=== PATIENT | male | born 1950 | race Caucasian/White ===

== ENCOUNTER → 2017-01-06 | Outpatient (CLI) | payer BC ==
--- NOTE | 2017-01-06 18:31 | US ---
EXAMINATION TYPE: US prostate transrectal DATE OF EXAM: 01/06/2017 COMPARISON: NONE CLINICAL HISTORY: N41.0 acute prostatitis. This examination was performed using the transrectal probe. Moderate enlargement of the prostate gland is noted. Central glandular calcifications seen. Mild hete rogeneity of the peripheral zone without distinct nodule or mass. Seminal vesicles appear symmetric. EXAM MEASUREMENTS: Gland Size: 6.0 x 4.2 x 5.3cm Volume: 69.3 Predicted PSA: 8.3 Actual PSA (if available):2.1 IMPRESSION: 1. Prostate glandular enlargement 2. No suspicious nodule is identified. Predicted PSA = volume x 0.12 ng/ml Calculated Volume = 0.5236 x L x W x H
== END | disposition home or self-care (01) ==
LOC: RADUSMAIN 07:25
PROVIDERS: ATTEND Internal Medicine
DX: N40.0 Benign prostatic hyperplasia without lower urinary tract symptoms (principal)
CPT/HCPCS: 76872

== ENCOUNTER → 2017-04-22 | Outpatient (CLI) | payer BC ==
--- NOTE | 2017-04-23 07:47 | US ---
EXAMINATION TYPE: US kidneys/renal and bladder DATE OF EXAM: 04/22/2017 COMPARISON: 05/24/2015 CLINICAL HISTORY: R10.9 Unspecified Abdominal Pain. EXAM MEASUREMENTS: Right Kidney: 11.4 x 5.0 x 4.8 cm Left Kidney: 11.6 x 5.0 x 5.0 cm Right Kidney: No hydronephrosis or masses seen Left Kidney: No hydronephrosis. Cystic area visualized measuring 0.9 x 0.7 x 0.7 cm Bladder: wnl Bilateral Jets seen: Yes Cortical medullary differentiation is maintained. Subcentimeter cortical cyst is present. Inferior im pression on the urinary bladder by enlarged prostate is again noted. Liver echotexture is coarse which may be indicative of underlying hepatocellular disease. IMPRESSION: Prostate enlargement. Additional findings above.
== END | disposition home or self-care (01) ==
LOC: RADUSWWP 15:28
PROVIDERS: ATTEND Internal Medicine
DX: N40.0 Benign prostatic hyperplasia without lower urinary tract symptoms (principal); R10.9 Unspecified abdominal pain
CPT/HCPCS: 76770

== ENCOUNTER → 2021-12-09 | Outpatient (CLI) | payer MEDICARE, OTHER | END | disposition home or self-care (01) | LOC: PROCWHC3 12:36 | PROVIDERS: ATTEND Nurse Practitioner Adult Health | DX: Z53.9 Procedure and treatment not carried out, unspecified reason (principal) ==

== ENCOUNTER → 2021-12-11 | Outpatient (CLI) | payer MEDICARE, OTHER ==
[~2021-12-11] MED LIST: BEBTELOVIMAB (EUA) 175 MG/2 ML VIAL IV ONE; SODIUM CHLORIDE 0.9% 500 ML 500 ML in EMPTY BAG 1 BAG IV PRN
[2021-12-11 13:07] VITALS: TEMP 97.4
[2021-12-11 13:59] VITALS: BP 113/72; PULSE 56; RESP 16
== END | disposition home or self-care (01) ==
LOC: PROCWHC3 12:28
PROVIDERS: ATTEND Nurse Practitioner Adult Health
DX: U07.1 COVID-19 (principal)

== ENCOUNTER → 2022-09-11 | Outpatient (CLI) | payer MEDICARE, OTHER ==
[2022-09-11 21:43] LABS: Basophils # (A) 0.05 X 10*3/uL (0.00-0.10); Basophils % (A) 0.9 %; Eosinophils % (A) 3.6 %; HCT 44.6 % (39.6-50.0); HGB 14.9 d/dL (12.0-15.0); Lymphocytes # (A) 1.78 X 10*3/uL (0.90-5.00); MCHC 33.4 d/dL (32.0-37.0); MCV 92.7 FL (80.0-97.0); Mean Platelet Volume 12.4 FL (9.5-12.2); Monocytes % (A) 7.2 %; NRBC Per 100 WBC 0 X 10*3/uL (0.00-0.01); Neutrophils # (A) 3.12 X 10*3/uL (1.80-7.70); Neutrophils % (A) 55.9 %; Platelet Count 113 X 10*3/uL (140-440); RBC 4.81 X 10*6/uL (4.40-5.60); RDW 11.7 % (11.5-14.5); WBC 5.57 X 10*3/uL (4.50-10.00)
[2022-09-12 02:38] LABS: BUN/Creat Ratio 18.78 Ratio (12.00-20.00); Blood Urea Nitrogen 16.9 mg/dL (9.0-27.0); Calcium 10.2 mg/dL (8.7-10.3); Carbon Dioxide 29.8 mmol/L (21.6-31.8); Chloride 105 mmol/L (96-109); Glucose 101 mg/dL (70-110); Potassium 5.6 mmol/L (3.5-5.5); Sodium 144 mmol/L (135-145)
== END | disposition home or self-care (01) ==
LOC: LABPAT 14:16
PROVIDERS: ATTEND Urology
DX: Z01.818 Encounter for other preprocedural examination (principal); N40.1 Benign prostatic hyperplasia with lower urinary tract symptoms
CPT/HCPCS: 80048; 85025

== ENCOUNTER 2022-09-17 05:42 | Day surgery (SDC) | payer MEDICARE, OTHER ==
[2022-09-14 15:05] VITALS: BMI 23.6
--- NOTE | 2022-09-16 18:56 | P.GSHP ---
History of Present Illness H&P Date: 09/16/22 Chief Complaint: Weak urinary stream Patient is a 71-year-old white male with a several year history of obstructive voiding symptoms. He was treated for a Proteus UTI in December 2016. He empties his bladder adequately. He has taken tamsulosin without benefit. Cystoscopy shows a very large intravesical median lobe in addition to bilobar prostatic enlargement. Ultrasound of treatment options were reviewed. He has elected to undergo a bipolar transurethral resection of prostate (TURP). - Cardiovascular Cardiovascular: Reports high blood pressure - Genitourinary (Male) Genitourinary: Reports nocturia Past Medical History Past Medical History: Coronary Artery Disease (CAD), Diabetes Mellitus, Hyperlipidemia, Prostate Disorder Additional Past Medical History / Comment(s): enlarged prostate History of Any Multi-Drug Resistant Organisms: None Reported Past Surgical History: Orthopedic Surgery Additional Past Surgical History / Comment(s): left rot cuff repair, ORIF left great toe,rnai eyes cataracts Past Anesthesia/Blood Transfusion Reactions: No Reported Reaction Additional Past Anesthesia/Blood Transfusion Reaction / Comment(s): no hx blood tranfusion Smoking Status: Former smoker - Past Family History Mother Family Medical History: Cancer Sister(s) Family Medical History: Cancer Medications and Allergies Home Medications Medication Instructions Recorded Confirmed Type Atorvastatin [Lipitor] 10 mg PO DAILY 09/14/22 09/14/22 History Dulaglutide [Trulicity] 4.5 mg SQ MO 09/14/22 09/14/22 History Insulin Glargine [Lantus Vial] 30 unit SQ QAM 09/14/22 09/14/22 History Levothyroxine Sodium [Levoxyl] 50 mcg PO QAM 09/14/22 09/14/22 History Multivit-Min/FA/Lycopen/Lutein 1 each PO DAILY 09/14/22 09/14/22 History [Centrum Silver Tablet] atenoloL [Tenormin] 25 mg PO QAM 09/14/22 09/14/22 History Allergies Allergy/AdvReac Type Severity Reaction Status Date / Time empagliflozin Allergy Rash/Hives Verified 09/14/22 14:53 [From Jardiance] sitagliptin [From Januvia] Allergy Rash/Hives Verified 09/14/22 14:53 Surgical - Exam - General well developed, well nourished, no distress - Respiratory normal respiratory effort - Abdomen Abdomen: soft, non tender, no guarding, no rigid, no rebound - Genitourinary normal penis with no external lesions, testicles non-tender - Rectum Rectum: normal sphincter tone, no masses, other (Prostate moderately enlarged but smooth) - Psychiatric oriented to time, oriented to person, oriented to place, speech is normal, memory intact Assessment and Plan (1) Benign prostatic hyperplasia with lower urinary tract symptoms Status: Acute Code(s): N40.1 - BENIGN PROSTATIC HYPERPLASIA WITH LOWER URINARY TRACT SYMP SNOMED Code(s): 710459943 Plan: Cystoscopy, TURP. The procedure has been reviewed in detail with the patient. The anticipated perioperative course has been discussed. He has been made aware of potential risks, which include anesthesia, bleeding, infection, vesical neck contracture, persistent voiding symptoms, erectile dysfunction, retrograde ejaculation, and urinary incontinence.
[2022-09-17] MEDS ORDERED: DEXAMETHASONE SOD PHOSPHATE 4 MG/ML 1 ML VIAL IV ONE (06:00)
[2022-09-17] MEDS ORDERED: ONDANSETRON 4 MG/2 ML VIAL IVP ONE (06:00)
[2022-09-17] MEDS ORDERED: HYDROmorphone 0.5 MG/0.5 ML SYRINGE IVP PRN (06:00)
[2022-09-17 06:38] LABS: Glucose,Whole Blood 137 mg/dL (70-110)
[2022-09-17] MEDS: LACTATED RINGERS 1,000 ML IV SCH (06:42)
[2022-09-17] MEDS ORDERED: ROCURONIUM 10 MG/ML (5 ML VIAL) IV ONE (07:26)
[2022-09-17] MEDS ORDERED: LIDOCAINE 2% INJ 20 MG/ML (2 ML VIAL) ONE (07:26)
[2022-09-17] MEDS ORDERED: PROPOFOL 10 MG/ML 20 ML VIAL IV ONE (07:26)
[2022-09-17] MEDS ORDERED: GLYCOPYRROLATE 0.2 MG/ML 2 ML VIAL ONE (07:26)
[2022-09-17] MEDS ORDERED: fentaNYL (PF) 50 MCG/ML 2 ML AMP ONE (07:26)
[2022-09-17] MEDS ORDERED: SUCCINYLCHOLINE CHLORIDE 200 MG/10 ML VIAL IV ONE (07:26)
[2022-09-17] MEDS ORDERED: MIDAZOLAM 2 MG/2 ML VIAL ONE (07:26)
[2022-09-17] MEDS ORDERED: NEOSTIGMINE 1 MG/ML 10 ML VIAL ONE (07:26)
[2022-09-17] MEDS ORDERED: SODIUM CHLORIDE 0.9% 1,000 ML IV ONE (09:45)
[2022-09-17 17:09] LABS: Glucose,Whole Blood 210 mg/dL (70-110)
[2022-09-17] MEDS: SODIUM CHLORIDE 0.9% IRRIG 3,000 ML BAG IRRIGATION SCH ×2 (17:30→20:00)
[2022-09-17] MEDS: DEXTROSE 5%-0.45% NACL 1,000 ML IV SCH ×2 (17:30→17:31)
[2022-09-17] MEDS: DOCUSATE 100 MG CAP PO SCH (20:45)
[2022-09-17] MEDS: ACETAMINOPHEN TAB 325 MG TAB PO PRN (20:45)
[2022-09-17 20:47] LABS: Glucose,Whole Blood 293 mg/dL (70-110)
--- NOTE | 2022-09-17 22:02 | P.OP ---
Date of Procedure: 09/17/22 Preoperative Diagnosis: BPH with obstruction Postoperative Diagnosis: BPH with obstruction, urethral stricture Procedure(s) Performed: Cystoscopy, direct visual internal urethrotomy (DVIU), bipolar transurethral resection of prostate (TURP) Anesthesia: CINTHYA Surgeon: Taye Marshall Estimated Blood Loss (ml): 150 IV fluids (ml): 1,100 Pathology: other (Prostate chips) Condition: stable Disposition: PACU Indications for Procedure: Patient is a 71-year-old white male with a several year history of obstructive voiding symptoms. He was treated for a Proteus UTI in December 2016. He empties his bladder adequately. He has taken tamsulosin without benefit. Cystoscopy shows a very large intravesical median lobe in addition to bilobar prostatic enlargement. Ultrasound of treatment options were reviewed. He has elected to undergo a bipolar transurethral resection of prostate (TURP). Operative Findings: Bulbous urethral stricture. Trilobar BPH. Trabeculated bladder with several diverticuli. Description of Procedure: The patient was taken in the operating room and placed in the dorsolithotomy position. The external genitalia was prepped and draped sterilely. The urethral meatus would not accommodate the 25-[place] A[employer] resectoscope sheath, so the [place] urethrotome was used to perform a urethrotomy. The resectoscope sheath was then advanced under direct vision, but a bulbous urethral stricture was encountered. The visual urethrotome was used to perform a direct visual internal urethrotomy. It was then possible to advance the resectoscope sheath through the urethra and into the bladder under direct vision. The bladder was inspected. Both ureteral orifices were of normal anatomic location and configuration. No tumors or foreign bodies were seen. The bladder was trabecu lated, and at least 2 diverticuli were seen. Examination of the prostate revealed complete obstruction with a trilobar configuration. Using the bipolar cutting loop, the median lobe was resected. Next, each of the lateral lobes were resected down to the surgical capsule. The floor of the prostate was then resected, proximal to the verumontanum. Next, the remaining anterior tissue was resected. The apex extended beyond the verumontanum, and the most apical tissue was preserved to avoid injury to the external urinary sphincter. The resection was carried down to the surgical capsule in all 4 quadrants. The prostatic fossa was then carefully examined, and any areas of bleeding were controlled with electrocautery. Adequate hemostasis was attained. The resectoscope was withdrawn into the bulbous urethra. The external urinary sphincter remained intact. The prostatic fossa was open. The Acquaintable evacuator was used to remove all prostate chips from the bladder. These were saved and sent for pathologic examination. The resectoscope was removed, and a 22 [place], 3-Way Nava catheter was placed. The return was essentially clear. Continuous bladder irrigation was started using 0.9 normal saline. The patient tolerated the procedure well was taken to the recovery room in stable condition.
[2022-09-18] MEDS ORDERED: DEXTROSE 50% SYRINGE 50 ML IVP PRN ×2 (03:45)
--- NOTE | 2022-09-18 04:17 | P.CONS ---
History of Present Illness - Reason for Consult Consult date: 09/17/22 post op DM care - Chief Complaint BPH - History of Present Illness 71 year old male with DM , Hypertension , Hypothyroid patient is here for scheduled TURP secondary to BPH. he tolerated procedure well, no observed immediate post op complications. tolerating PO intake, denies any chest pain or SOB Review of Systems Pertinent positives as noted in HPI. All other systems were reviewed and are negative Past Medical History Past Medical History: Coronary Artery Disease (CAD), Diabetes Mellitus, Hyperlipidemia, Prostate Disorder Additional Past Medical History / Comment(s): enlarged prostate History of Any Multi-Drug Resistant Organisms: None Reported Past Surgical History: Orthopedic Surgery Additional Past Surgical History / Comment(s): left rot cuff repair, ORIF left great toe,rani eyes cataracts, TURP 09/17/2022 Past Anesthesia/Blood Transfusion Reactions: No Reported Reaction Additional Past Anesthesia/Blood Transfusion Reaction / Comm: no hx blood tranfusion Past Psychological History: No Psychological Hx Reported Smoking Status: Former smoker Past Alcohol Use History: Occasional Additional Past Alcohol Use History / Comment(s): quit smoking 50 yrs ago Past Drug Use History: None Reported - Past Family History Mother Family Medical History: Cancer Sister(s) Family Medical History: Cancer Medications and Allergies Home Medications Medication Instructions Recorded Confirmed Type Atorvastatin [Lipitor] 10 mg PO DAILY 09/14/22 09/14/22 History Dulaglutide [Trulicity] 4.5 mg SQ MO 09/14/22 09/14/22 History Insulin Glargine [Lantus Vial] 30 unit SQ QAM 09/14/22 09/14/22 History Levothyroxine Sodium [Levoxyl] 50 mcg PO QAM 09/14/22 09/14/22 History Multivit-Min/FA/Lycopen/Lutein 1 each PO DAILY 09/14/22 09/14/22 History [Centrum Silver Tablet] atenoloL [Tenormin] 25 mg PO QAM 09/14/22 09/14/22 History Allergies Allergy/AdvReac Type Severity Reaction Status Date / Time empagliflozin Allergy Rash/Hives Verified 09/17/22 06:12 [From Jardiance] sitagliptin [From Januvia] Allergy Rash/Hives Verified 09/17/22 06:12 Physical Exam Vitals: Vital Signs Temp Pulse Pulse Resp BP Pulse Ox 09/17/22 19:15 97.8 F 67 18 146/76 99 09/17/22 17:06 97.4 F L 71 18 150/73 98 09/17/22 16:08 63 16 129/61 100 09/17/22 15:00 68 16 135/70 100 09/17/22 14:00 62 16 133/77 100 09/17/22 13:30 65 16 131/75 100 09/17/22 13:15 55 L 16 128/68 100 09/17/22 13:00 50 L 16 128/61 100 09/17/22 12:45 54 L 16 134/70 100 09/17/22 12:30 54 L 16 143/74 100 09/17/22 12:15 51 L 16 145/69 100 09/17/22 12:00 53 L 16 129/63 100 09/17/22 11:45 56 L 16 123/64 100 09/17/22 11:36 97 F L 62 16 166/72 100 09/17/22 06:39 97.8 F 57 L 16 153/72 98 Intake and Output 09/17/22 09/17/22 09/17/22 06:59 14:59 22:59 Intake Total 350 1300 500 Output Total 1950 1999 Balance 350 -650 -1500 Intake: IV 350 1300 Oral 500 Output: Urine 1800 2000 3-way Urethral 2000 Estimated Blood Loss 150 Other: # Bowel Movements 0 Weight 75.9 kg 75.9 kg Constitutional: No acute distress, conversant, pleasant Eyes: Anicteric sclerae, moist conjunctiva, Pupils equal round reactive to light ENMT: NC/AT Oropharynx clear, no erythema, or exudates Neck: Supple, no masses, or JVD No carotid bruits No thyromegaly Lungs: Clear to auscultation Clear to percussion Normal respiratory effort, no accessory muscle use Cardiovascular: Heart regular in rate and rhythm, No murmurs, gallops, or rubs No peripheral edema Abdominal: Soft Nontender, no guarding, rebound or rigidity Abdomen moving with respiration Normoactive bowel sounds No hepatomegaly, No splenomegaly No palpable mass No abdominal wall hernia noted Skin: Normal temperature, tone, texture, turgor Extremities: No digital cyanosis No clubbing Pedal pulses intact and symmetrical Radial pulses intact and symmetrical No calf tenderness Psychiatric: Alert and oriented to person, place and time Appropriate affect Neuro Muscles Strength 5/5 in all 4 extremities Sensation to light touch grossly present throughout Cranial nerves II-XII grossly intact Lymphatics: no palpable cervical or supraclavicular lymph nodes Results CBC & Chem 7: 09/17/22 06:30 Labs: Abnormal Lab Results - Last 24 Hours (Table) 09/17/22 09/17/22 09/17/22 Range/Units 06:36 17:08 20:45 POC Glucose (mg/dL) 137 H 210 H 293 H (70-110) mg/dL Assessment and Plan Assessment: BPH S/p TURP POD zero management per urology irrigation with normal saline per urology DM insulin sliding scale continue trulicity hypertension resume atenolol 25 mg po daily hypothyroid resume levothyroxin 50 mcg daily stable from medical stand point full code DVT PPX mechanical thank you for this consultation follow up BMP and CBC in AM
[2022-09-18 05:17] LABS: Basophils % (A) 0 %; Eosinophils % (A) 0 %; HCT 36.1 % (39.0-53.0); HGB 12.5 gm/dL (13.0-17.5); Lymphocytes # (A) 1.2 k/uL (1.0-4.8); Lymphocytes % (A) 14 %; MCH 32.3 pg (25.0-35.0); MCHC 34.5 g/dL (31.0-37.0); MCV 93.7 fL (80.0-100.0); Mean Platelet Volume 10.5; Monocytes # (A) 0.5 k/uL (0-1.0); Monocytes % (A) 5 %; Neutrophils # (A) 7.3 k/uL (1.3-7.7); Neutrophils % (A) 80 %; Platelet Count 105 k/uL (150-450); RBC 3.86 m/uL (4.30-5.90); RDW 12.2 % (11.5-15.5); WBC 9.1 k/uL (3.8-10.6)
[2022-09-18 05:18] LABS: African American GFR (CKD) >90 (>60 ml/min/1.73 sqM); Anion Gap 6 mmol/L; Blood Urea Nitrogen 21 mg/dL (9-20); Calcium 8.6 mg/dL (8.4-10.2); Carbon Dioxide 27 mmol/L (22-30); Chloride 102 mmol/L (98-107); Glucose 282 mg/dL (74-99); Non-African American GFR(CKD) 89 (>60 ml/min/1.73 sqM); Potassium 4.9 mmol/L (3.5-5.1); Sodium 135 mmol/L (137-145)
[2022-09-18] MEDS: ACETAMINOPHEN TAB 325 MG TAB PO PRN (05:43)
[2022-09-18] MEDS: DEXTROSE 5%-0.45% NACL 1,000 ML IV SCH (05:44)
[2022-09-18 06:03] LABS: Glucose,Whole Blood 260 mg/dL (70-110)
[2022-09-18] MEDS: LACTATED RINGERS 1,000 ML IV SCH (06:11)
[2022-09-18] MEDS ORDERED: LEVOTHYROXINE 50 MCG TAB PO SCH (06:30)
[2022-09-18] MEDS ORDERED: INSULIN ASPART (NovoLOG) 100 UNIT/ML VIAL SQ SCH (07:30)
[2022-09-18 07:49] VITALS: BP 145/70; PULSE 68; TEMP 98.7
--- NOTE | 2022-09-18 08:01 | P.DS ---
Providers Expected date of discharge: 09/18/22 Attending physician: Taye Marshall Consults: 09/17/22 22:43 Consult Physician Routine Consulting Provider: Onofre Kumar Consult Reason/Comments: Diabetes Do you want consulting provider notified?: Yes, Notify in am Primary care physician: Gumaro Espinoza - Discharge Diagnosis(es) (1) Benign prostatic hyperplasia with lower urinary tract symptoms Current Visit: No Status: Acute Hospital Course: On the day of admission, the patient underwent an uncomplicated TURP. The prostate was quite enlarged, with a trilobar configuration. A three-way Nava catheter was placed, and continuous bladder irrigation was run overnight. On the first postoperative day, the urine was essentially clear in the continuous bladder irrigation was held. The patient denied pain, nausea, and vomiting. He also denied chest pain and dyspnea. Procedures: Cystoscopy, direct visual internal urethrotomy (DVIU), bipolar transurethral resection of prostate (TURP) on 09/17/2022 Patient Condition at Discharge: Good Plan - Discharge Summary Discharge Rx Participant: No New Discharge Prescriptions: New Ciprofloxacin HCl [Cipro] 250 mg PO Q12HR #6 tablet No Action Multivit-Min/FA/Lycopen/Lutein [Centrum Silver Tablet] 1 each PO DAILY atenoloL [Tenormin] 25 mg PO QAM Levothyroxine Sodium [Levoxyl] 50 mcg PO QAM Insulin Glargine [Lantus Vial] 30 unit SQ QAM Dulaglutide [Trulicity] 4.5 mg SQ MO Atorvastatin [Lipitor] 10 mg PO DAILY Discharge Medication List Atorvastatin [Lipitor] 10 mg PO DAILY 09/14/22 [History] Dulaglutide [Trulicity] 4.5 mg SQ MO 09/14/22 [History] Insulin Glargine [Lantus Vial] 30 unit SQ QAM 09/14/22 [History] Levothyroxine Sodium [Levoxyl] 50 mcg PO QAM 09/14/22 [History] Multivit-Min/FA/Lycopen/Lutein [Centrum Silver Tablet] 1 each PO DAILY 09/14/22 [History] atenoloL [Tenormin] 25 mg PO QAM 09/14/22 [History] Ciprofloxacin HCl [Cipro] 250 mg PO Q12HR #6 tablet 09/18/22 [Rx] Follow up Appointment(s)/Referral(s): Taye Marshall MD [STAFF PHYSICIAN] - 09/22/22 8:00 am Activity/Diet/Wound Care/Special Instructions: Discharge home with Nava catheter. Plug irrigation port. Drink plenty of fluids. Avoid lifting and straining. Begin taking Cipro on 09/21/2022. Resume home meds. Discharge Disposition: HOME SELF-CARE
[2022-09-18] MEDS: DOCUSATE 100 MG CAP PO SCH (08:09)
[2022-09-18] MEDS ORDERED: atenoloL 25 MG TAB PO SCH (09:00)
[2022-09-18] MEDS ORDERED: ATORVASTATIN 10 MG TAB PO SCH (09:00)
[2022-09-18 10:15] VITALS: RESP 20
--- NOTE | 2022-09-18 11:10 | P.PN ---
Subjective Progress Note Date: 09/18/22 Patient seen this morning denies any acute complaints. Patient states that he has seen his urologist this morning and was cleared to go home. Objective - Vital Signs Vital signs: Vital Signs Temp 98.7 F 09/18/22 07:05 Pulse 68 09/18/22 10:11 Resp 20 09/18/22 10:11 BP 145/70 09/18/22 07:05 Pulse Ox 99 09/18/22 07:05 FiO2 Intake & Output 09/17/22 09/18/22 09/18/22 18:59 06:59 18:59 Intake Total 1800 1300 Output Total 3950 4875 800 Balance -2150 -3575 -800 Weight 75.9 kg Intake: IV 1300 Intake, IV Titration 900 Amount Dextrose 5%-0.45% NaCl 1, 900 000 ml @ 75 mls/hr IV . [id number] [facility] Rx#:[id number] Oral 500 400 Output: Urine 3800 4875 800 3-way Urethral 2000 3375 Estimated Blood Loss 150 Other: Voiding Method Indwelling Catheter Indwelling Catheter # Bowel Movements 0 - Exam General examination - Alert and Oriented 3 in NAD Heart - + S1S2 no murmurs Lungs - Clear to auscultation Abdomen soft NT ND +ve BS Extremities - No edema METER/RELAY TECHNICIAN - Moving all 4 extremities spontaneously Psych - Calm and cooperative - Labs CBC & Chem 7: 09/18/22 04:45 09/18/22 04:45 Labs: Abnormal Lab Results - Last 24 Hours (Table) 09/17/22 09/17/22 09/18/22 Range/Units 17:08 20:45 04:45 RBC 3.86 L (4.30-5.90) m/uL Hgb 12.5 L (13.0-17.5) gm/dL Hct 36.1 L (39.0-53.0) % Plt Count 105 L (150-450) k/uL Sodium (137-145) mmol/L BUN (9-20) mg/dL Glucose (74-99) mg/dL POC Glucose (mg/dL) 210 H 293 H (70-110) mg/dL 09/18/22 09/18/22 Range/Units 04:45 05:55 RBC (4.30-5.90) m/uL Hgb (13.0-17.5) gm/dL Hct (39.0-53.0) % Plt Count (150-450) k/uL Sodium 135 L (137-145) mmol/L BUN 21 H (9-20) mg/dL Glucose 282 H (74-99) mg/dL POC Glucose (mg/dL) 260 H (70-110) mg/dL Assessment and Plan Assessment: BPH S/p TURP POD zero management per urology irrigation with normal saline per urology This morning patient had pink colored urine in his Nava bag Urology clear patient for discharge DM Resume home regimen on discharge hypertension Resume home regimen on discharge hypothyroid resume levothyroxin 50 mcg daily Patient stable for discharge from a medical standpoint. I discussed with the nurse. I wasn't completely patient's medication reconciliation.
[2022-09-21] MEDS ORDERED: Dulaglutide [Trulicity] 4.5 MG/0.5 ML Each SQ SCH (09:00)
== END 2022-09-18 10:23 | disposition home or self-care (01) ==
LOC: OR 05:42 → 4SSUR 11:36 → OR 09-18 10:23
PROVIDERS: ATTEND Urology
DX: N40.1 Benign prostatic hyperplasia with lower urinary tract symptoms (principal); N42.89 Other specified disorders of prostate; N13.8 Other obstructive and reflux uropathy; N35.919 Unspecified urethral stricture, male, unspecified site; I25.10 Atherosclerotic heart disease of native coronary artery without angina pectoris; E11.9 Type 2 diabetes mellitus without complications; E78.5 Hyperlipidemia, unspecified; Z87.891 Personal history of nicotine dependence; Z98.890 Other specified postprocedural states; Z79.890 Hormone replacement therapy; Z79.899 Other long term (current) drug therapy
CPT/HCPCS: 52601; 88305; 80048; 84132; 85025; J2250; J0330; J1100; J2710; J0690; J2405; J3010; J2704; J1170; J2001

== ENCOUNTER 2022-09-20 08:44 | Emergency (ER) | payer MEDICARE, OTHER ==
[2022-09-20 08:53] VITALS: RESP 18
[2022-09-20] MEDS ORDERED: SODIUM CHLORIDE 0.9% 1,000 ML IV STA (09:41)
[2022-09-20] MEDS ORDERED: MORPHINE SULFATE 4 MG/ML SYRINGE IVP STA (09:42)
[2022-09-20 10:13] LABS: Basophils % (A) 1 %; Eosinophils # (A) 0.1 k/uL (0-0.7); Eosinophils % (A) 2 %; HCT 35.7 % (39.0-53.0); HGB 12.2 gm/dL (13.0-17.5); Lymphocytes # (A) 1.1 k/uL (1.0-4.8); Lymphocytes % (A) 18 %; MCH 31.4 pg (25.0-35.0); MCHC 34.2 g/dL (31.0-37.0); MCV 91.7 fL (80.0-100.0); Mean Platelet Volume 9.6; Monocytes # (A) 0.3 k/uL (0-1.0); Monocytes % (A) 5 %; Neutrophils # (A) 4.5 k/uL (1.3-7.7); Neutrophils % (A) 74 %; RBC 3.89 m/uL (4.30-5.90); RBC,Urine >182 /hpf (0-5); WBC,Urine 31 /hpf (0-5)
[2022-09-20 10:14] LABS: Appearance,Urine Bloody (Clear)
[2022-09-20 10:22] LABS: Potassium 3.6 mmol/L (3.5-5.1)
[2022-09-20 10:23] LABS: ALT 17 U/L (4-49); AST 20 U/L (17-59); African American GFR (CKD) >90 (>60 ml/min/1.73 sqM); Albumin 3.3 g/dL (3.5-5.0); Alkaline Phosphatase 57 U/L (38-126); Anion Gap 6 mmol/L; Blood Urea Nitrogen 11 mg/dL (9-20); Calcium 8.5 mg/dL (8.4-10.2); Carbon Dioxide 29 mmol/L (22-30); Chloride 103 mmol/L (98-107); Glucose 121 mg/dL (74-99); Lipase 27 U/L (23-300); Non-African American GFR(CKD) 87 (>60 ml/min/1.73 sqM); Sodium 138 mmol/L (137-145); Total Bilirubin 1.6 mg/dL (0.2-1.3); Total Protein 5.5 g/dL (6.3-8.2)
[2022-09-20 10:41] LABS: Platelet Count 94 k/uL (150-450)
--- NOTE | 2022-09-20 11:25 | CT ---
EXAMINATION TYPE: CT abdomen pelvis w con CT DLP: 1003 mGycm, Automated exposure control for dose reduction was used. DATE OF EXAM: 09/20/2022 11:05 AM COMPARISON: None. CLINICAL INDICATION:Male, 71 years old with history of abdominal pain, recent TURP; abdominal pain, r ecent TURP TECHNIQUE: Axial CT of the abdomen and pelvis. Sagittal and coronal reformats were created on a [employer] workstation. Contrast used:100 mL of Isovue 300 with IV Contrast, Oral contrast used: without Oral Contrast FINDINGS: LOWER CHEST: Unremarkable ABDOMEN LIVER: Unremarkable GALLBLADDER AND BILE DUCTS: Unremarkable. PANCREAS: Unremarkable. SPLEEN: Unremarkable. ADRENAL GLANDS: Unremarkable. KIDNEYS AND URETERS: Mild left hydronephrosis secondary to suspected thickening of the ureterovesicul ar junction. No evidence of right hydronephrosis at this time. PELVIS BLADDER: There is a circumferential bladder wall thickening with Nava catheter in place. Fat strandi ng changes around the bladder wall. Bladder wall measuring at least 16 mm REPRODUCTIVE: Prostate is enlarged in size measuring 6.3 cm in transverse dimension. ABDOMEN & PELVIS STOMACH AND BOWEL: Small hiatal hernia, duodenum is unremarkable No evidence of bowel obstruction. Th e appendix is normal. PERITONEUM/RETROPERITONEUM: No evidence of pneumoperitoneum or free fluid. VASCULATURE: Mild atherosclerotic calcifications are present throughout the abdominal aorta and its b ranches. No evidence of aortic aneurysm. MUSCULOSKELETAL: No acute osseous abnormalities. Mild disc degeneration changes are present throughou t the thoracolumbar spine. LYMPH NODES: No gross evidence for lymphadenopathy. SOFT TISSUE/ABDOMINAL WALL: Unremarkable IMPRESSION: 1. 3. Postsurgical changes to the prostate gland with Prostatomegaly correlate with serum PSA. No e vidence for organizing fluid collection. There is some inflammation changes in the pelvis which could be postsurgical versus secondary to suspected cystitis. 2. Circumferential bladder wall thickening with Nava catheter in appropriate position. Correlate wi th urinalysis for cystitis. 3. Left mild hydronephrosis secondary to thickening of the ureterovesicular junction from edematous bladder cruz. 4. Small hiatal hernia.
--- NOTE | 2022-09-20 11:55 | ED ---
General Adult HPI - General Chief complaint: Recheck/Abnormal Lab/Rx Stated complaint: Back/Kidney pain Time Seen by Provider: 09/20/22 08:55 Source: patient Mode of arrival: ambulatory Limitations: no limitations - History of Present Illness Initial comments: 71-year-old male with past medical history of BPH presents to the emergency department reporting left flank pain. He recently had a TURP procedure on September [address] Marshall. He went home with a Nava in place. States that his urine has been a medium red in coloration. He was told that it would increase in lightness however this has yet to happen. States that it continues to drain. He was given a perception for an antibiotic that he is not supposed to start until tomorrow. He has some suprapubic tenderness. No fevers. No pus drainage. He does not take any blood thinners. No other alleviating, precipitating or modifying factors - Related Data Home Medications Medication Instructions Recorded Confirmed Atorvastatin [Lipitor] 10 mg PO DAILY 09/14/22 09/14/22 Dulaglutide [Trulicity] 4.5 mg SQ MO 09/14/22 09/14/22 Insulin Glargine [Lantus Vial] 30 unit SQ QAM 09/14/22 09/14/22 Levothyroxine Sodium [Levoxyl] 50 mcg PO QAM 09/14/22 09/14/22 Multivit-Min/FA/Lycopen/Lutein 1 each PO DAILY 09/14/22 09/14/22 [Centrum Silver Tablet] atenoloL [Tenormin] 25 mg PO QAM 09/14/22 09/14/22 Previous Rx's Medication Instructions Recorded Ciprofloxacin HCl [Cipro] 250 mg PO Q12HR #6 tablet 09/18/22 HYDROcodone/APAP 7.5-325MG [Hanna 1 tab PO Q4HR PRN #18 tab 09/20/22 7.5-325] polyethylene glycoL 3350 [Miralax] 17 gm PO DAILY #527 gm 09/20/22 Allergies Allergy/AdvReac Type Severity Reaction Status Date / Time empagliflozin Allergy Rash/Hives Verified 09/20/22 08:53 [From Jardiance] sitagliptin [From Januvia] Allergy Rash/Hives Verified 09/20/22 08:53 Review of Systems ROS Statement: Those systems with pertinent positive or pertinent negative responses have been documented in the HPI. ROS Other: All systems not noted in ROS Statement are negative. Past Medical History Past Medical History: Diabetes Mellitus History of Any Multi-Drug Resistant Organisms: None Reported Additional Past Surgical History / Comment(s): left rot cuff repair, ORIF left great toe,rani eyes cataracts, TURP 09/17/2022 Past Psychological History: No Psychological Hx Reported Smoking Status: Never smoker Past Alcohol Use History: Occasional Past Drug Use History: None Reported General Exam Limitations: no limitations General appearance: alert, in no apparent distress Head exam: Present: atraumatic, normocephalic, normal inspection Eye exam: Present: normal appearance, PERRL, EOMI. Absent: scleral icterus, conjunctival injection, periorbital swelling ENT exam: Present: normal exam, mucous membranes moist Neck exam: Present: normal inspection. Absent: tenderness, meningismus, lymphadenopathy Respiratory exam: Present: normal lung sounds bilaterally. Absent: respiratory distress, wheezes, rales, rhonchi, stridor Cardiovascular Exam: Present: regular rate, normal rhythm, normal heart sounds. Absent: systolic murmur, diastolic murmur, rubs, gallop, clicks GI/Abdominal exam: Present: soft, normal bowel sounds. Absent: distended, tenderness, guarding, rebound, rigid Extremities exam: Present: normal inspection, full ROM, normal capillary refill. Absent: tenderness, pedal edema, joint swelling, calf tenderness Back exam: Present: CVA tenderness (L) Neurological exam: Present: alert, oriented X3, CN II-XII intact Psychiatric exam: Present: normal affect, normal mood Skin exam: Present: warm, dry, intact, normal color. Absent: rash Course Vital Signs 09/20/22 09/20/22 09/20/22 08:50 09:56 11:08 Temperature 98.9 F 98.0 F Pulse Rate 70 65 62 Respiratory 18 18 18 Rate Blood Pressure 149/77 136/74 140/73 O2 Sat by Pulse 98 99 98 Oximetry 09/20/22 12:44 Temperature 98.2 F Pulse Rate 63 Respiratory 18 Rate Blood Pressure 127/71 O2 Sat by Pulse 98 Oximetry - Reevaluation(s) Reevaluation #1: Spoke with Dr. Okeefe 09/20/22 11:54 Medical Decision Making - Medical Decision Making Was pt. sent in by a medical professional or institution (CARMELITA Adams, [employer] TR[employer] OPERATOR, urgent care, hospital, or fdc...) When possible be specific @ -no Did you speak to anyone other than the patient for history (EMS, parent, family, police, friend...)? What history was obtained from this source @ -No Did you review nursing and triage notes (agree or disagree)? Why? @ -I reviewed and agree with nursing and triage notes Were old charts reviewed (outside hosp., previous admission, EMS record, old EKG, old radiological studies, urgent care reports/EKG's, fdc records)? Report findings @ -operative report from Dr. Marshall - 09/17 Differential Diagnosis (chest pain, altered mental status, abdominal pain women, abdominal pain men, vaginal bleeding, weakness, fever, dyspnea, syncope, headache, dizziness, GI bleed, back pain, seizure, CVA, palpatations, mental health, musculoskeletal)? @ -catheter obstruction, bladder perforation, uti, pyelonephritis, kidney stone EKG interpreted by me (3pts min.). @ -none done X-rays interpreted by me (1pt min.). @ -None done CT interpreted by me (1pt min.). @ -yes - left hydro U/S interpreted by me (1pt. min.). @ -None done What testing was considered but not performed or refused? (CT, X-rays, U/S, labs)? Why? @ -None What meds were considered but not given or refused? Why? @ -None Did you discuss the management of the patient with other professionals (professionals i.e. CARMELITA Adams, G[employer]INE TRUCK OPERATOR, lab, RT, psych nurse, social group worker, model set artist, teacher, donor relations officer, case packer)? Give summary @ -dr marshall who performed the procedure Was smoking cessation discussed for >3mins.? @ -No Was critical care preformed (if so, how long)? @ -no Were there social determinants of health that impacted care today? How? (Homelessness, low income, unemployed, alcoholism, drug addiction, transportation, low edu. Level, literacy, decrease access to med. care, retirement, rehab)? @ -No Was there de-escalation of care discussed even if they declined (Discuss DNR or withdrawal of care, Hospice)? DNR status @ -No What co-morbidities impacted this encounter? (DM, HTN, Smoking, COPD, CAD, Cancer, CVA, ARF, Chemo, Hep., AIDS, mental health diagnosis, sleep apnea, morbid obesity)? @ -enlarged prostate Was patient admitted / discharged? Hospital course, mention meds given and route, prescriptions, significant lab abnormalities, going to OR and other pertinent info. @ -Upon arrival the patient was placed into room 5. Thorough history and p hysical exam was performed. Nava appears to be draining appropriately. Laboratory studies are conducted and reviewed. Skin is performed which demonstrates some mild left sided hydro-with thickening of the bladder. There is swelling of the UVJ on the left. Patient has put out 200 mL of urine in his catheter in 2 hours. I called and spoke with Dr. Marshall. Recommends placing the patient on pain medications. He does have a follow-up appointment on Wednesday. Patient will start taking his antibiotic tomorrow. Patient is reporting that he hasn't had a bowel movement since he has had his procedure. He is given a dose of milk of magnesia to use today. I recommended he take Colace and MiraLAX daily while taking the Hanna for pain. Instructed to return for any new or worsening symptoms. Patient agreeable to this was discharged in stable condition Undiagnosed new problem with uncertain prognosis? @ -No Drug Therapy requiring intensive monitoring for toxicity (Heparin, Nitro, Insulin, Cardizem)? @ -No Were any procedures done? @ -No Diagnosis/symptom? @ -acute left flank pain, left hydro, s/p turp Acute, or Chronic, or Acute on Chronic? @ -acute Uncomplicated (without systemic symptoms) or Complicated (systemic symptoms)? @ -complicated Side effects of treatment? @ -no Exacerbation, Progression, or Severe Exacerbation? @ -No Poses a threat to life or bodily function? How? (Chest pain, [place], [place], pneumonia, PE, COPD, DKA, ARF, appy, cholecystitis, CVA, Diverticulitis, Homicidal, Suicidal, threat to staff... and all critical care pts) @ -no - Lab Data Result diagrams: 09/20/22 09:47 09/20/22 09:47 Lab Results 09/20/22 09/20/22 09/20/22 Range/Units 09:47 09:47 09:47 WBC 6.0 (3.8-10.6) k/uL RBC 3.89 L (4.30-5.90) m/uL Hgb 12.2 L (13.0-17.5) gm/dL Hct 35.7 L (39.0-53.0) % MCV 91.7 (80.0-100.0) fL MCH 31.4 (25.0-35.0) pg MCHC 34.2 (31.0-37.0) g/dL RDW 12.0 (11.5-15.5) % Plt Count 94 L (150-450) k/uL MPV 9.6 Neutrophils % 74 % Lymphocytes % 18 % Monocytes % 5 % Eosinophils % 2 % Basophils % 1 % Neutrophils # 4.5 (1.3-7.7) k/uL Lymphocytes # 1.1 (1.0-4.8) k/uL Monocytes # 0.3 (0-1.0) k/uL Eosinophils # 0.1 (0-0.7) k/uL Basophils # 0.0 (0-0.2) k/uL Manual Slide Review Performed Sodium 138 (137-145) mmol/L Potassium 3.6 (3.5-5.1) mmol/L Chloride 103 (98-107) mmol/L Carbon Dioxide 29 (22-30) mmol/L Anion Gap 6 mmol/L BUN 11 (9-20) mg/dL Creatinine 0.88 (0.66-1.25) mg/dL Est GFR (CKD-EPI)AfAm >90 (>60 ml/min/1.73 sqM) Est GFR (CKD-EPI)NonAf 87 (>60 ml/min/1.73 sqM) Glucose 121 H (74-99) mg/dL Plasma Lactic Acid [place] (0.7-2.0) mmol/L Calcium 8.5 (8.4-10.2) mg/dL Total Bilirubin 1.6 H (0.2-1.3) mg/dL AST 20 (17-59) U/L ALT 17 (4-49) U/L Alkaline Phosphatase 57 (38-126) U/L Total Protein 5.5 L (6.3-8.2) g/dL Albumin 3.3 L (3.5-5.0) g/dL Lipase 27 (23-300) U/L Urine Appearance Bloody (Clear) Urine RBC >182 H (0-5) /hpf Urine WBC 31 H (0-5) /hpf 09/20/22 Range/Units 09:47 WBC (3.8-10.6) k/uL RBC (4.30-5.90) m/uL Hgb (13.0-17.5) gm/dL Hct (39.0-53.0) % MCV (80.0-100.0) fL MCH (25.0-35.0) pg MCHC (31.0-37.0) g/dL RDW (11.5-15.5) % Plt Count (150-450) k/uL MPV Neutrophils % % Lymphocytes % % Monocytes % % Eosinophils % % Basophils % % Neutrophils # (1.3-7.7) k/uL Lymphocytes # (1.0-4.8) k/uL Monocytes # (0-1.0) k/uL Eosinophils # (0-0.7) k/uL Basophils # (0-0.2) k/uL Manual Slide Review Sodium (137-145) mmol/L Potassium (3.5-5.1) mmol/L Chloride (98-107) mmol/L Carbon Dioxide (22-30) mmol/L Anion Gap mmol/L BUN (9-20) mg/dL Creatinine (0.66-1.25) mg/dL Est GFR (CKD-EPI)AfAm (>60 ml/min/1.73 sqM) Est GFR (CKD-EPI)NonAf (>60 ml/min/1.73 sqM) Glucose (74-99) mg/dL Plasma Lactic Acid [place] 1.0 (0.7-2.0) mmol/L Calcium (8.4-10.2) mg/dL Total Bilirubin (0.2-1.3) mg/dL AST (17-59) U/L ALT (4-49) U/L Alkaline Phosphatase (38-126) U/L Total Protein (6.3-8.2) g/dL Albumin (3.5-5.0) g/dL Lipase (23-300) U/L Urine Appearance (Clear) Urine RBC (0-5) /hpf Urine WBC (0-5) /hpf Disposition Clinical Impression: Constipation, Left flank pain, S/P TURP (status post transurethral resection of prostate), Hematuria Disposition: HOME SELF-CARE Condition: Stable Instructions (If sedation given, give patient instructions): Transurethral Prostatectomy (DC) Additional Instructions: Please increase your fluid intake. Start your antibiotics tomorrow. Take the pain medications as directed. Use the milk of magnesia today to have a bowel movement. Then please take Colace and MiraLAX daily. Follow-up at your scheduled appointment on Wednesday. Return for any new or worsening symptoms Prescriptions: polyethylene glycoL 3350 [Miralax] 17 gm PO DAILY #527 gm HYDROcodone/APAP 7.5-325MG [Hanna 7.5-325] 1 tab PO Q4HR PRN #18 tab PRN Reason: Pain Is patient prescribed a controlled substance at d/c from ED?: Yes When asked, does pt state using other controlled substances?: No If prescribed controlled substance>3 days was MAPS reviewed?: Prescribed <3 Days Referrals: Gumaro Espinoza MD [Primary Care Provider] - 1-2 days Taye Marshall MD [STAFF PHYSICIAN] - 1-2 days Time of Disposition: 12:29
[2022-09-20] MEDS ORDERED: MAGNESIUM HYDROXIDE 2,400 MG/10 ML CUP PO PRN (12:15)
[2022-09-20 12:52] VITALS: BP 127/71; PULSE 63; TEMP 98.2
== END 2022-09-20 12:49 | disposition home or self-care (01) ==
LOC: EC 08:44
DX: K59.00 Constipation, unspecified (principal); N13.2 Hydronephrosis with renal and ureteral calculous obstruction; E11.36 Type 2 diabetes mellitus with diabetic cataract; Z79.4 Long term (current) use of insulin; Z79.85 Long-term (current) use of injectable non-insulin antidiabetic drugs; Z98.890 Other specified postprocedural states; Z88.8 Allergy status to other drugs, medicaments and biological substances
CPT/HCPCS: 36415; 80053; 83605; 83690; 85025; 81001; 74177; 99284; 96374; 96361; J2270; Q9967

== ENCOUNTER → 2023-04-28 | Outpatient (CLI) | payer MEDICARE, OTHER ==
--- NOTE | 2023-04-28 10:16 | US ---
EXAMINATION TYPE: US kidneys/renal and bladder DATE OF EXAM: 04/28/2023 COMPARISON: Correlation CT 09/20/2022 CLINICAL INDICATION: Male, 72 years old with history of N13.30 UNSPECIFIED HYDRONEPHROSIS; history of left hydronephrosis, has had left flank pain since prostate debulking surgery around September of 2022, p ain has been improving since October US EXAM MEASUREMENTS: Right Kidney: 10.3 x 5.0 x 5.0 cm Left Kidney: 11.1 x 4.4 x 5.3 cm Right Kidney: No hydronephrosis or masses seen Left Kidney: Mild hydronephrosis is demonstrated. Bladder: Thickened and trabeculated bladder wall. IMPRESSION: 1. Mild left-sided hydronephrosis. 2. Thickened and trabeculated bladder wall could reflect underlying cystitis or thickening secondary to chronic bladder outlet obstruction.
== END | disposition home or self-care (01) ==
LOC: RADUSWWP 09:29
PROVIDERS: ATTEND Family Medicine
DX: N13.30 Unspecified hydronephrosis (principal); N32.89 Other specified disorders of bladder; Z98.890 Other specified postprocedural states
CPT/HCPCS: 76770

== ENCOUNTER → 2023-07-16 | Outpatient (CLI) | payer MEDICARE, OTHER ==
--- NOTE | 2023-07-16 10:17 | US ---
EXAMINATION TYPE: US kidneys/renal and bladder DATE OF EXAM: 07/16/2023 COMPARISON: CLINICAL INDICATION: Male, 72 years old with history of N13.30 UNSPECIFIED HYDRONEPHROSIS; Hx left hy jaden. Stent was placed for one month and taken out 2 weeks ago. Hx partial prostate removal. No pa in today. EXAM MEASUREMENTS: Right Kidney: 10.5 x 4.3 x 4.9 cm Left Kidney: 11.0 x 5.0 x 5.4 cm Right Kidney: No hydronephrosis or masses seen Left Kidney: Mild hydronephrosis Bladder: Anechoic. Wall = 6.1 mm Right jet seen No nephrolithiasis is seen. No masses are identified. The urinary bladder is anechoic. IMPRESSION: Left-sided hydronephrosis noted. Left ureteral jet not seen with certainty.
== END | disposition home or self-care (01) ==
LOC: RADUSWWP 09:43
PROVIDERS: ATTEND Urology
DX: N13.30 Unspecified hydronephrosis (principal); Z90.79 Acquired absence of other genital organ(s)
CPT/HCPCS: 76770

== ENCOUNTER → 2024-04-12 | Outpatient (CLI) | payer MEDICARE, OTHER ==
--- NOTE | 2024-04-12 10:21 | US ---
EXAMINATION TYPE: US kidneys/renal and bladder DATE OF EXAM: 04/12/2024 COMPARISON: Most recent: 07/16/23 CLINICAL INDICATION: Male, 73 years old with history of N13.30 UNSPECIFIED HYDRONEPHROSIS; left sided hydro TECHNIQUE: Grayscale imaging of the bilateral kidneys and urinary bladder: FINDINGS: EXAM MEASUREMENTS: Right Kidney: 11.3 x 5.8 x 5.3 cm Left Kidney: 11.0 x 5.5 x 5.3 cm Right Kidney: No hydronephrosis or masses seen Left Kidney: dilated renal pelvis Bladder: wall appears thickened, possible diverticulum seen posterior wall Bilateral Jets seen: yes There is stable mild left-sided hydronephrosis. No nephrolithiasis is seen. No masses are identifie d. The urinary bladder remains poorly distended with abnormal wall thickening and lobulated contour. IMPRESSION: Stable mild left-sided hydronephrosis. Persistent lobulated wall thickening to the bladde r. Suspect outlet obstruction related to BPH. Correlate clinically. Small bladder diverticulum is fel t appreciated on current study. [facility], , 04/12/2024 10:19 AM
== END | disposition home or self-care (01) ==
LOC: RADUSWWP 08:19
PROVIDERS: ATTEND Urology
DX: N13.30 Unspecified hydronephrosis (principal); N32.89 Other specified disorders of bladder
CPT/HCPCS: 76770